=== PATIENT | female | born 1955 | race Caucasian/White ===

== ENCOUNTER 2020-12-13 08:04 | Outpatient (CLI) | payer MEDICARE, BC, SELFPAY ==
--- NOTE | 2020-12-13 12:10 | WPDPFTINT ---
PFT Interpretation This is a pulmonary function test with spirometry, plethysmography and diffusing capacity. The test was performed and results interpreted in accordance with the 2019 and 2005 ATS/ERS Task Force guidelines respectively using the Global Lung Function Initiative-2012 reference equations. Patient demonstrated good effort and cooperation. Reproducibility criteria were met. The quality of the pre bronchodilator spirometry maneuver was Grade A and post bronchodilator spirometry maneuver was Grade A. Findings: Spirometry: The contour the inspiratory and expiratory flow tracing are normal. The FVC was 3.21 L, 104% predicted. The FEV1 was 2.29 L, 95% predicted. The FEV1: FVC ratio was 71%. Plethysmography: The total lung capacity was 4.67 L, 90% predicted. The functional residual capacity was 2.58 L, 87% predicted. The residual volume was 1.19 L, 55% predicted. Diffusing capacity: The absolute diffusion capacity was 14.5, 68% predicted. The diffusing capacity corrected for alveolar volume was 3.46, 80% predicted Impression: The spirometry is normal without evidence of an obstructive abnormality. there is an isolated decrease in the residual volume of uncertain significance. The absolute diffusing capacity is mildly decreased and normalizes when corrected for alveolar volume. There are no prior studies for comparison
== END 2020-12-13 08:05 | disposition home or self-care (01) ==
PROVIDERS: PCP Internal Medicine; Visit Provider Internal Medicine
DX: R06.02 Shortness of breath (principal)
CPT/HCPCS: 94060; 94726; 94729

== ENCOUNTER → 2022-03-25 15:01 | Outpatient (CLI) | payer MEDICARE, BC, SELFPAY ==
--- NOTE | ~2022-03-25 | XR_ITS ---
XR lumbar spine min 4V DATE: 03/25/2022 15:24 INDICATION: Low back pain. No injury. TECHNIQUE: AP, lateral, bilateral oblique views and coned lateral lumbosacral view COMPARISON: None FINDINGS: Multiple surgical clips along the medial right lower abdomen and bilateral pelvic surgical clips. There is mild levoscoliosis of the lumbar spine. There is mild to moderate degenerative disc disease at L1 to, L2-3 and L3-4. Minimal degenerative disc disease at L4-5. L5-S1 interspace is well preserved. No fracture or bone destruction or spondylolisthesis or spondylolisthesis is noted. There is degenera tive change at the apophyseal joints. The sacroiliac joints are intact. IMPRESSION: Mild scoliosis Mild to moderate degenerative disc disease of the upper and mid lumbar spine Postoperative change of the right lower abdomen and bilateral pelvic area Reviewed, dictated and finalized at location B.
== END ==
PROVIDERS: PCP Family Medicine; Visit Provider Family Medicine
DX: M41.9 Scoliosis, unspecified (principal); M47.816 Spondylosis without myelopathy or radiculopathy, lumbar region
CPT/HCPCS: 72110